=== PATIENT | female | born 2000 | race Caucasian/White ===

== ENCOUNTER 2019-12-23 21:49 | Emergency (ER) | payer OTHER, SELFPAY ==
[2019-12-23 22:06] VITALS: BP 133/78; PULSE 87; RESP 18; TEMP 36.8; O2SAT 98
--- NOTE | 2019-12-23 22:16 | ED.EAR ---
HPI - Ear Problem General Chief complaint: Ear Stated complaint: Rt ear pain Time Seen by Provider: 12/23/19 22:05 Source: patient Mode of arrival: ambulatory Limitations: no limitations History of Present Illness HPI Narrative: Josefa is a 19-year-old female. She states that she pierced her right ear herself 1 week ago. This was in the upper part of the pinna of the right ear. It has become infected. She removed the piercing. The pain of the right ear is S somewhat swollen and red. It is mildly tender. She has no fever. Her temperature is 98.2? F. head this time there is no drainage noted. MD Complaint: ear pain Location: right ear Duration: constant Severity: moderate Relieving factors: other ( Tylenol) Exacerbating factors: nothing Context: Reports other ( see HPI narrative) Discharge from ear: Reports no Associated symptoms ear: other ( see HPI narrative) Treatment prior to arrival: other ( removed the ear piercing.) Related Data Allergies Allergy/AdvReac Type Severity Reaction Status Date / Time PEAR Allergy Mild Rash Uncoded 04/04/09 11:06 Review of Systems Review of Systems: All systems reviewed & are unremarkable except as noted in HPI and below Constitutional: Constitutional: Reports as per HPI, Reports no additional constitutional complaints, Denies chills and Denies fever(s) Eyes: Eyes: Reports as per HPI, Reports no additional eye complaints and Denies change in vision ENT: Reports system reviewed and no additional complaints, except as documented, Reports as per HPI, Denies vertigo and Denies dizziness Cardiovascular: Cardiovascular: Reports as per HPI, Denies chest pain and Denies radiating jaw, neck or arm pain Respiratory: Respiratory: Reports as per HPI, Reports no additional respiratory complaints, Denies cough and Denies dyspnea Gastrointestinal: Gastrointestinal: Reports as per HPI, Reports no additional gastrointestinal complaints, Denies nausea and Denies vomiting Musculoskeletal: Musculoskeletal: Reports no additional musculoskeletal complaints Integumentary/Breasts: Skin/Breast: Reports system reviewed and no additional complaints, except as docu, Reports erythema ( Redness to the right ear. See HPI narrative) and Denies rash Neurologic: Reports system reviewed and no additional complaints, except as documented, Denies headache(s), Denies focal weakness and Denies numbness Psychiatric: Psychiatric: Reports no additional psychiatric complaints Hematologic/Lymphatic: Hematologic/Lymphatic: Reports no additional hematologic/lymphatic complaints, Denies easy bleeding and Denies easy bruising Allergic/Immunologic: Allergic/Immunologic: Reports no additional allergic/immunologic complaints, Denies lip swelling and Denies tongue swelling PMFSH Past Medical History Medical History (Updated 12/23/19 @ 22:26 by Giacomo Larsen MD) No pertinent past medical history Surgical History Surgical History (Updated 12/23/19 @ 22:21 by Giacomo Larsen MD) No significant past surgical history Family History Family History (Updated 12/23/19 @ 22:21 by Giacomo Larsen MD) Father Family history of type 2 diabetes mellitus Father Diabetes mellitus Social History Social History (Updated 12/23/19 @ 22:22 by Giacomo Larsen MD) Smoking packs per day: 0.5 Smoking cigarettes per day: 10.0 Years smoked: 5 Smoking pack-years: 2.50 Smoking status: Current every day smoker Alcohol intake: current Alcohol use details: drinks occasionally socially Substance use: current Substance use type: marijuana Exam Const: General: no acute distress ( mild distress) and alert Orientation/consciousness: patient oriented x3 Limitations: no limitations HENMT: Other: the upper part of the pain of the right ear is swollen and red. It is tender to palpation. The piercing hole does not have any drainage at this time. TM is normal. EACs normal. Eyes: Conjunctivae: co
[2019-12-23] MEDS: AMOXICILLIN/CLAVULANATE K 875-125 MG TAB 1 TABLET PO (22:21)
== END 2019-12-23 22:33 | disposition home or self-care (01) ==
PROVIDERS: Emergency Provider Surgery
DX: H60.391 Other infective otitis externa, right ear (principal)
CPT/HCPCS: 99283; A9270

== ENCOUNTER 2020-06-22 11:41 | Emergency (ER) | payer OTHER, SELFPAY ==
[2020-06-22 11:50] VITALS: BP 127/80; PULSE 71; RESP 14; TEMP 36.6; O2SAT 98
--- NOTE | 2020-06-22 12:02 | ED.DENTAL ---
HPI - Dental/Oral General Chief complaint: Dental/Oral Stated complaint: tooth ache Source: patient Mode of arrival: ambulatory Limitations: no limitations History of Present Illness HPI Narrative: Josefa is a previously healthy 20F that presented to the ED with a toothache. She has had pain in a few of her front lower teeth that has been worsening for the last week. The pain radiates to her left ear. No trauma, dysphagia, fevers, chills, SOB, N/V, or sore throat. Related Data Allergies Allergy/AdvReac Type Severity Reaction Status Date / Time PEAR Allergy Mild Rash Uncoded 04/04/09 11:06 Review of Systems Constitutional: Constitutional: Reports no additional constitutional complaints Eyes: Eyes: Reports no additional eye complaints ENT: Reports as per HPI Cardiovascular: Cardiovascular: Reports no additional cardiovascular complaints Respiratory: Respiratory: Reports no additional respiratory complaints Gastrointestinal: Gastrointestinal: Reports no additional gastrointestinal complaints Genitourinary: Genitourinary: Reports no additional female genitourinary complaints Musculoskeletal: Musculoskeletal: Reports no additional musculoskeletal complaints Integumentary/Breasts: Skin/Breast: Reports system reviewed and no additional complaints, except as docu Neurologic: Reports system reviewed and no additional complaints, except as documented Psychiatric: Psychiatric: Reports no additional psychiatric complaints Endocrine: Endocrine: Reports no additional endocrine complaints Hematologic/Lymphatic: Hematologic/Lymphatic: Reports no additional hematologic/lymphatic complaints Allergic/Immunologic: Allergic/Immunologic: Reports no additional allergic/immunologic complaints [facility] Past Medical History Medical History No pertinent past medical history Surgical History Surgical History No significant past surgical history Family History Family History Father Family history of type 2 diabetes mellitus Father Diabetes mellitus Social History Social History Smoking packs per day: 0.5 Smoking cigarettes per day: 10.0 Years smoked: 5 Smoking pack-years: 2.50 Smoking status: Current every day smoker Alcohol intake: current Substance use: current Substance use type: marijuana Exam Const: General: no acute distress and alert Orientation/consciousness: patient oriented x3 Limitations: No altered mental status HENMT: Head: normal to inspection Other: normocephalic, atraumatic, moist mucous membranes, slight edema and erythma around the lower central incisors that were also TTP Eyes: Conjunctivae: conjunctivae normal Pupils: Equal, round and reactive pupils present Neck: Neck: normal visual inspection Resp: Effort & Inspection: normal respiratory effort Auscultation: clear to auscultation bilaterally Cardio: Rate: regular rate Rhythm: regular rhythm Heart sounds: no murmurs Skin: General skin exam: normal color Rashes: no rashes Neuro: General: patient oriented x3, moves all extremities and CN's II-XI intact bilaterally Extrem: General: normal to inspection Psych: Mental Status: mental status grossly normal Course Course Emergency Course: Josefa was evaluated and given Toradol for the pain. She was discharged with a script for Penicillin. Vital Signs Vital signs: Vital Signs Temperature 97.8 F 06/22/20 11:50 Pulse Rate 71 06/22/20 11:50 Respiratory Rate 14 06/22/20 11:50 Blood Pressure 127/80 06/22/20 11:50 Pulse Oximetry 98 06/22/20 11:50 Temperature 97.8 F 06/22/20 11:50 Pulse Rate 71 06/22/20 11:50 Respiratory Rate 15 06/22/20 12:26 Blood Pressure 127/80 06/22/20 11:50 Pulse Oximetry 100 06/22/20 12:26
[2020-06-22] MEDS: KETOROLAC (*BKC) 60 MG/2 ML VIAL 30 MG IM (12:07)
[2020-06-22 12:26] VITALS: RESP 15; O2SAT 100
== END 2020-06-22 12:37 | disposition home or self-care (01) ==
PROVIDERS: Emergency Provider Family Medicine
DX: K08.89 Other specified disorders of teeth and supporting structures (principal); F17.200 Nicotine dependence, unspecified, uncomplicated
CPT/HCPCS: 96372; 99283; J1885

== ENCOUNTER 2020-10-20 14:05 | Emergency (ER) | payer OTHER, SELFPAY ==
[2020-10-20 14:18] VITALS: BP 144/83; PULSE 84; RESP 20; TEMP 36.6; O2SAT 97
--- NOTE | 2020-10-20 14:23 | ED.ALLEREA ---
HPI - Allergic Reaction General Chief complaint: Allergic Reaction Stated complaint: allergic reaction to something Time Seen by Provider: 10/20/20 14:24 Source: patient Mode of arrival: ambulatory Limitations: no limitations History of Present Illness HPI narrative: A 20-year-old previously well woman comes in today complaining of itching, redness and swelling of her face after she applied some topical toner. She states that it is Lavender scented. She has had no prior similar reactions. She denies wheezing, throat swelling, tongue swelling, shortness of breath, vomiting lightheadedness or wheezing. She denies any recent illnesses. Patient states she is sexually active but is not on control. MD complaint: allergic reaction and facial swelling Onset (ago): minute(s) Exposure: other ( Topical beauty products) Symptoms: rash, itching and facial swelling Severity: moderate Treatment prior to arrival: none Previous Allergic Reaction History: none Related Data Allergies Allergy/AdvReac Type Severity Reaction Status Date / Time PEAR Allergy Mild Rash Uncoded 04/04/09 11:06 Review of Systems Constitutional: Constitutional: Denies chills, Denies fever(s) and Denies weakness Eyes: Eyes: Denies change in vision and Denies photophobia ENT: Denies dysphagia, Denies nasal congestion and Denies sore throat Cardiovascular: Cardiovascular: Denies chest pain and Denies radiating jaw, neck or arm pain Respiratory: Respiratory: Denies cough and Denies wheezing Gastrointestinal: Gastrointestinal: Denies nausea and Denies vomiting Integumentary/Breasts: Skin/Breast: Reports pruritus, Reports erythema and Reports rash Neurologic: Denies vertigo, Denies dizziness and Denies syncope Hematologic/Lymphatic: Hematologic/Lymphatic: Denies easy bleeding and Denies easy bruising Allergic/Immunologic: Allergic/Immunologic: Denies throat swelling and Denies tongue swelling [facility] Past Medical History Medical History (Updated 10/20/20 @ 14:43 by Rodríguez Hyatt MD) No pertinent past medical history Surgical History Surgical History No significant past surgical history Family History Family History Father Family history of type 2 diabetes mellitus Father Diabetes mellitus Social History Social History Smoking packs per day: 0.5 Smoking cigarettes per day: 10.0 Years smoked: 5 Smoking pack-years: 2.50 Smoking status: Current every day smoker Alcohol intake: current Substance use: current Substance use type: marijuana Exam Const: General: healthy appearing and alert Orientation/consciousness: patient oriented x3 Limitations: no limitations Other: mild acute distress. HENMT: Head: normal to inspection Ears: external ears normal, TM's normal bilaterally and EAC's normal General nose exam: Normal nares present Mouth: Yes moist mucous membranes Throat: posterior oropharynx normal Eyes: Conjunctivae: conjunctivae normal Pupils: Equal, round and reactive pupils present EOM: EOMs intact bilaterally Neck: Neck: normal visual inspection and no lymphadenopathy Resp: Effort & Inspection: normal respiratory effort and not labored Auscultation: clear to auscultation bilaterally, no rales, no rhonchi and no wheezes Cardio: Rate: regular rate Rhythm: regular rhythm Heart sounds: no murmurs Skin: General skin exam: no jaundice and no pallor Other: Erythema with mild edema to the forehead, cheeks and chin. Neuro: General: patient oriented x3, moves all extremities, no focal motor deficits and CN's II-XI intact bilaterally Speech: normal speech Gait exam (Neuro): Normal gait present Extrem: General: normal to inspection and no clubbing, cyanosis or edema Psych: Appearance: grossly normal and well kempt Affect: Anxious affect present
[2020-10-20 14:43] LABS: Pregnancy On Board Control Positive; Urine Pregnancy Test Negative
[2020-10-20] MEDS: predniSONE 20 MG TABLET 60 MG PO (14:48)
[2020-10-20 14:50] VITALS: BP 134/78; PULSE 87; RESP 20; O2SAT 98
== END 2020-10-20 14:52 | disposition home or self-care (01) ==
PROVIDERS: Emergency Provider Emergency Medicine
DX: T78.40XA Allergy, unspecified, initial encounter (principal)
CPT/HCPCS: 81025; 99283; J7512